=== PATIENT | male | born 1935 | race Caucasian/White ===

== ENCOUNTER 2021-04-07 09:16 | Inpatient (IN) | payer MEDICARE ==
[~2021-04-07] VITALS: Ht 175.3 cm; Wt 72.6 kg
[2021-04-07] VITALS (15 sets, daily range): BP systolic 97–139; BP diastolic 63–94
[2021-04-07] MEDS ORDERED: SODIUM CHLORIDE 0.9% 1000ML 1,000 ML IV STA (09:29)
[2021-04-07] MEDS ORDERED: DILTIAZEM HCL VIAL 5 ML ONE (09:39)
[2021-04-07 09:56] LABS: HEMATOCRIT 39.9 % (38.2-49.6); LYMPHOCYTES # (AUTO) 0.5 (1.0-3.2); LYMPHOCYTES % 4.4 % (18.0-39.1); MEAN CORPUSCULAR HEMOGLOBIN 27.7 pg (28-32); MEAN CORPUSCULAR HGB CONC 30.1 g/dL (31-35); MEAN CORPUSCULAR VOLUME 92.1 fL (81-99); MONOCYTES # (AUTO) 0.6 (0.2-0.8); MONOCYTES % 5.7 % (4.4-11.3); NEUTROPHILS # (AUTO) 10.1 (2.1-6.9); NEUTROPHILS % 89.2 % (38.7-80.0); PLATELET COUNT 220 x10e3/uL (140-360); RED BLOOD COUNT 4.33 x10e6/uL (4.3-5.7); RED CELL DISTRIBUTION WIDTH 14.4 % (11.7-14.4)
[2021-04-07 09:58] LABS: INR 1.18
[2021-04-07] MEDS ORDERED: DILTIAZEM HCL 5 MG/ML 5 ML VIAL IV STA (09:58)
[2021-04-07 09:59] LABS: PARTIAL THROMBOPLASTIN TIME 26.6 seconds (23.8-35.5)
[2021-04-07] MEDS ORDERED: DILTIAZEM HCL 5 MG/ML 5 ML VIAL IV ONE (10:00)
[2021-04-07 10:08] LABS: ALBUMIN 2.7 g/dL (3.5-5.0); ALBUMIN/GLOBULIN RATIO 0.9 (0.8-2.0); CALCIUM 7.9 mg/dL (8.4-10.2); CREATININE, SERUM 1.3 mg/dL (0.72-1.25)
[2021-04-07 10:09] LABS: CREATINE KINASE MB 6.3 ng/mL (0-5.0)
[2021-04-07] MEDS ORDERED: CEFTRIAXONE 1 GM in SODIUM CHLORIDE 0.9% 50ML 50 ML IV ONE (10:15)
[2021-04-07] MEDS ORDERED: DILTIAZEM HCL 60 MG TAB PO SCH (10:45)
[2021-04-07] MEDS: ENOXAPARIN SOD INJ 60 MG/0.6 ML SYR SC SCH ×2 (11:42→23:05)
[2021-04-07] MEDS: DILTIAZEM HCL 60 MG TAB PO SCH ×2 (11:43→17:38)
[2021-04-07] MEDS ORDERED: DIGOXIN 0.125 MG TAB PO ONE (12:00)
[2021-04-07] MEDS: SODIUM CHLORIDE 0.9% 1000ML 1,000 ML IV SCH (12:27)
[2021-04-07] MEDS: AMIODARONE HCL 200 MG TAB PO SCH ×2 (15:22→23:03)
[2021-04-08] MEDS: DILTIAZEM HCL 60 MG TAB PO SCH ×4 (00:04→21:48)
[2021-04-08] MEDS: SODIUM CHLORIDE 0.9% 1000ML 1,000 ML IV SCH (05:12)
[2021-04-08 06:26] LABS: HEMATOCRIT 37.5 % (38.2-49.6); HEMOGLOBIN 11.5 g/dL (14.0-18.0); LYMPHOCYTES # (AUTO) 0.4 (1.0-3.2); LYMPHOCYTES % 5.6 % (18.0-39.1); MEAN CORPUSCULAR HEMOGLOBIN 27.6 pg (28-32); MEAN CORPUSCULAR HGB CONC 30.7 g/dL (31-35); MEAN CORPUSCULAR VOLUME 90.1 fL (81-99); MONOCYTES # (AUTO) 0.5 (0.2-0.8); MONOCYTES % 6.8 % (4.4-11.3); NEUTROPHILS # (AUTO) 6.5 (2.1-6.9); NEUTROPHILS % 86.9 % (38.7-80.0); PLATELET COUNT 195 x10e3/uL (140-360); RED BLOOD COUNT 4.16 x10e6/uL (4.3-5.7); RED CELL DISTRIBUTION WIDTH 14.4 % (11.7-14.4)
[2021-04-08 06:59] LABS: ALBUMIN 2.6 g/dL (3.5-5.0); CALCIUM 8.3 mg/dL (8.4-10.2); CREATININE, SERUM 1.08 mg/dL (0.72-1.25)
[2021-04-08] MEDS ORDERED: IOPAMIDOL 370 MG/ML 200 ML INFUS..BTL INJ ONE (07:42)
[2021-04-08] MEDS ORDERED: SODIUM CHLORIDE 0.9% 50ML 50 ML ONE (07:43)
[2021-04-08 08:21] LABS: THYROID STIMULATING HORMONE 0.974 uIU/mL (0.350-4.940)
[2021-04-08] MEDS: ENOXAPARIN SOD INJ 60 MG/0.6 ML SYR SC SCH (08:33)
[2021-04-08] MEDS: CEFTRIAXONE 2 GM in SODIUM CHLORIDE 0.9% 100 ML IV SCH (08:46)
[2021-04-08] MEDS: ZINC SULFATE 50 MG CAP PO SCH (08:46)
[2021-04-08] MEDS: AMIODARONE HCL 200 MG TAB PO SCH ×3 (08:46→21:03)
[2021-04-08] MEDS: ASCORBIC ACID 500 MG TAB PO SCH ×2 (08:46→17:19)
[2021-04-08] MEDS: FUROSEMIDE 40 MG TAB PO SCH (08:46)
[2021-04-08] MEDS ORDERED: ENOXAPARIN INJ 80 MG/0.8 ML SYR SC SCH (09:00)
[2021-04-08 10:44] LABS: CHOL/HDL RATIO 6.3 (3.9-4.7)
[2021-04-08] MEDS ORDERED: REMDESIVIR 200MG 200 MG in SODIUM CHLORIDE 0.9% 100 ML IV ONE (14:00)
[2021-04-08] MEDS: DEXAMETHASONE 4 MG TAB PO SCH (14:39)
[2021-04-08 16:15] VITALS: BP 123/76
[2021-04-08 16:33] VITALS: BP 122/64
[2021-04-08] MEDS ORDERED: FLOMAX0.4 MG PO (16:37)
[2021-04-08 16:38] VITALS: BP 122/64
[2021-04-08] MEDS ORDERED: APIXABAN 5 MG TABLET PO SCH (17:00)
[2021-04-08] MEDS: APIXABAN 5 MG TABLET PO SCH (17:19)
[2021-04-08 20:24] VITALS: BP 112/82
[2021-04-08 21:00] VITALS: BP 112/82
[2021-04-09] VITALS (7 sets, daily range): BP systolic 109–148; BP diastolic 73–95
[2021-04-09] MEDS: SODIUM CHLORIDE 0.9% 1000ML 1,000 ML IV SCH (01:12)
[2021-04-09 05:34] LABS: LYMPHOCYTES # (AUTO) 0.2 (1.0-3.2); LYMPHOCYTES % 3.1 % (18.0-39.1); MEAN CORPUSCULAR HEMOGLOBIN 27.8 pg (28-32); MEAN CORPUSCULAR HGB CONC 30.6 g/dL (31-35); MEAN CORPUSCULAR VOLUME 91.1 fL (81-99); MONOCYTES # (AUTO) 0.3 (0.2-0.8); MONOCYTES % 3.5 % (4.4-11.3); NEUTROPHILS # (AUTO) 6.7 (2.1-6.9); NEUTROPHILS % 92.8 % (38.7-80.0); PLATELET COUNT 211 x10e3/uL (140-360); RED BLOOD COUNT 3.95 x10e6/uL (4.3-5.7); RED CELL DISTRIBUTION WIDTH 14.5 % (11.7-14.4)
[2021-04-09 06:06] LABS: CREATINE KINASE MB 6.9 ng/mL (0-5.0)
[2021-04-09] MEDS: DILTIAZEM HCL 60 MG TAB PO SCH ×3 (06:18→21:25)
[2021-04-09 07:09] LABS: ALBUMIN 2.8 g/dL (3.5-5.0); ALBUMIN/GLOBULIN RATIO 0.9 (0.8-2.0); ANION GAP 15.1 mmol/L (8-16); CALCIUM 8.7 mg/dL (8.4-10.2); CREATININE, SERUM 1.29 mg/dL (0.72-1.25); POTASSIUM 4.1 mmol/L (3.5-5.1)
[2021-04-09] MEDS: CEFTRIAXONE 2 GM in SODIUM CHLORIDE 0.9% 100 ML IV SCH (08:50)
[2021-04-09] MEDS: AMIODARONE HCL 200 MG TAB PO SCH ×3 (08:50→16:09)
[2021-04-09] MEDS: FUROSEMIDE 40 MG TAB PO SCH (08:51)
[2021-04-09] MEDS: ZINC SULFATE 50 MG CAP PO SCH (08:51)
[2021-04-09] MEDS: ASCORBIC ACID 500 MG TAB PO SCH ×2 (08:51→16:09)
[2021-04-09] MEDS: APIXABAN 5 MG TABLET PO SCH ×2 (08:51→16:09)
[2021-04-09] MEDS: AZITHROMYCIN 250 MG TAB PO SCH (10:00)
[2021-04-09] MEDS: DEXAMETHASONE 4 MG TAB PO SCH (15:08)
[2021-04-09] MEDS: REMDESIVIR 100MG 100 MG in SODIUM CHLORIDE 0.9% 100 ML IV SCH (15:08)
[2021-04-10] VITALS (10 sets, daily range): BP systolic 110–141; BP diastolic 74–98
[2021-04-10 05:38] LABS: HEMATOCRIT 37.4 % (38.2-49.6); HEMOGLOBIN 11.8 g/dL (14.0-18.0); LYMPHOCYTES # (AUTO) 0.3 (1.0-3.2); LYMPHOCYTES % 4.9 % (18.0-39.1); MEAN CORPUSCULAR HEMOGLOBIN 27.8 pg (28-32); MEAN CORPUSCULAR HGB CONC 31.6 g/dL (31-35); MEAN CORPUSCULAR VOLUME 88.2 fL (81-99); MONOCYTES # (AUTO) 0.2 (0.2-0.8); MONOCYTES % 3.6 % (4.4-11.3); NEUTROPHILS # (AUTO) 5.4 (2.1-6.9); PLATELET COUNT 238 x10e3/uL (140-360); RED BLOOD COUNT 4.24 x10e6/uL (4.3-5.7); RED CELL DISTRIBUTION WIDTH 14.6 % (11.7-14.4)
[2021-04-10] MEDS: DILTIAZEM HCL 60 MG TAB PO SCH ×3 (05:45→21:15)
[2021-04-10] MEDS ORDERED: CEFTRIAXONE 2 GM VIAL ONE (07:45)
[2021-04-10] MEDS ORDERED: SODIUM CHLORIDE 0.9% 100 ML ONE ×2 (07:47→14:57)
[2021-04-10 07:56] LABS: ALBUMIN 2.9 g/dL (3.5-5.0); ALBUMIN/GLOBULIN RATIO 0.9 (0.8-2.0); ANION GAP 15.7 mmol/L (8-16); CALCIUM 8.7 mg/dL (8.4-10.2); CREATININE, SERUM 1.28 mg/dL (0.72-1.25); POTASSIUM 3.7 mmol/L (3.5-5.1)
[2021-04-10] MEDS: APIXABAN 5 MG TABLET PO SCH ×2 (08:24→17:10)
[2021-04-10] MEDS: CEFTRIAXONE 2 GM in SODIUM CHLORIDE 0.9% 100 ML IV SCH (08:24)
[2021-04-10] MEDS: FUROSEMIDE 40 MG TAB PO SCH (08:24)
[2021-04-10] MEDS: AMIODARONE HCL 200 MG TAB PO SCH (08:24)
[2021-04-10] MEDS: ASCORBIC ACID 500 MG TAB PO SCH ×2 (08:24→17:10)
[2021-04-10] MEDS: AZITHROMYCIN 250 MG TAB PO SCH (08:25)
[2021-04-10] MEDS: ZINC SULFATE 50 MG CAP PO SCH (08:25)
[2021-04-10] MEDS: DEXAMETHASONE 4 MG TAB PO SCH (14:48)
[2021-04-10] MEDS: REMDESIVIR 100MG 100 MG in SODIUM CHLORIDE 0.9% 100 ML IV SCH (14:48)
[2021-04-10] MEDS ORDERED: REMDESIVIR 100MG 100 MG IV ONE (14:54)
[2021-04-11 05:20] VITALS: BP 119/86
[2021-04-11] MEDS: DILTIAZEM HCL 60 MG TAB PO SCH ×2 (05:23→14:00)
[2021-04-11 07:42] LABS: HEMATOCRIT 40.2 % (38.2-49.6); HEMOGLOBIN 12.6 g/dL (14.0-18.0); LYMPHOCYTES # (AUTO) 0.4 (1.0-3.2); LYMPHOCYTES % 5.7 % (18.0-39.1); MEAN CORPUSCULAR HEMOGLOBIN 27.6 pg (28-32); MEAN CORPUSCULAR HGB CONC 31.3 g/dL (31-35); MEAN CORPUSCULAR VOLUME 88.2 fL (81-99); MONOCYTES # (AUTO) 0.2 (0.2-0.8); MONOCYTES % 3.3 % (4.4-11.3); NEUTROPHILS # (AUTO) 6.7 (2.1-6.9); NEUTROPHILS % 90.5 % (38.7-80.0); PLATELET COUNT 267 x10e3/uL (140-360); RED BLOOD COUNT 4.56 x10e6/uL (4.3-5.7); RED CELL DISTRIBUTION WIDTH 14.5 % (11.7-14.4)
[2021-04-11 07:57] VITALS: BP 129/83
[2021-04-11 08:05] LABS: ALBUMIN 2.8 g/dL (3.5-5.0); ALBUMIN/GLOBULIN RATIO 0.9 (0.8-2.0); CALCIUM 8.7 mg/dL (8.4-10.2); CREATININE, SERUM 1.17 mg/dL (0.72-1.25)
[2021-04-11 08:08] VITALS: BP 129/83
[2021-04-11] MEDS ORDERED: AMIODARONE HCL 200 MG TAB PO SCH (09:00)
[2021-04-11] MEDS: ZINC SULFATE 50 MG CAP PO SCH (09:47)
[2021-04-11] MEDS: ASCORBIC ACID 500 MG TAB PO SCH (09:47)
[2021-04-11] MEDS: FUROSEMIDE 40 MG TAB PO SCH (09:47)
[2021-04-11] MEDS: APIXABAN 5 MG TABLET PO SCH (09:47)
[2021-04-11 10:58] VITALS: BP 114/71
[2021-04-11] MEDS: DEXAMETHASONE 4 MG TAB PO SCH (14:00)
[2021-04-11] MEDS: REMDESIVIR 100MG 100 MG in SODIUM CHLORIDE 0.9% 100 ML IV SCH (14:25)
[2021-04-11 15:25] VITALS: BP 109/74
== END 2021-04-11 16:48 | disposition home or self-care (01) | DRG 177 ==
LOC: ER 09:36 → ERHOLD 10:30 → MED/SURG3 04-08 16:38
PROVIDERS: ADMIT Family Medicine; ATTEND Family Medicine
PROC: XW033E5 Introduction of Remdesivir Anti-infective into Peripheral Vein, Percutaneous Approach, New Technology Group 5 (ICD-10-PCS; principal; 2021-04-08)
PROC: 3E0DX3Z Introduction of Anti-inflammatory into Mouth and Pharynx, External Approach (ICD-10-PCS; 2021-04-08)
DX: U07.1 COVID-19 (principal); J12.82 Pneumonia due to coronavirus disease 2019; I26.94 Multiple subsegmental thrombotic pulmonary emboli without acute cor pulmonale; J15.9 Unspecified bacterial pneumonia; I50.23 Acute on chronic systolic (congestive) heart failure; N17.9 Acute kidney failure, unspecified; I48.91 Unspecified atrial fibrillation; I25.10 Atherosclerotic heart disease of native coronary artery without angina pectoris; E78.5 Hyperlipidemia, unspecified; R09.02 Hypoxemia; R53.81 Other malaise; M19.90 Unspecified osteoarthritis, unspecified site; Z96.641 Presence of right artificial hip joint; Z96.651 Presence of right artificial knee joint; Z79.82 Long term (current) use of aspirin; Z77.090 Contact with and (suspected) exposure to asbestos; I11.0 Hypertensive heart disease with heart failure
CPT/HCPCS: 36415; 71045; 71260; 80053; 80061; 82550; 82553; 83880; 84443; 84484; 85025; 85379; 85610; 85730; 93005; 93306; 94799; 97139; 99285; J0248; J0456; J0696; J1650; J7030; J7050; Q9967; U0002